=== PATIENT | male | born 1960 | race Caucasian/White ===

== ENCOUNTER 2019-07-28 07:48 | Emergency (ER) | payer BC, SELFPAY ==
[2019-07-28 07:50] VITALS: BP 150/77; PULSE 74; RESP 18; TEMP 36.6; O2SAT 98; BMI 32.1
--- NOTE | 2019-07-28 08:02 | CT_ITS ---
STUDY: CT ABDOMEN AND PELVIS WITHOUT CONTRAST REASON FOR EXAM: Male, 58 years old. RT FLANK/BACK PAIN, CONSTIPATION RADIATION DOSAGE (If Supplied By Facility): CTDIvol = ( 27.03 ) mGy, DLP = ( 1384.39 ) mGycm TECHNIQUE: Transaxial images were obtained from the dome of the diaphragm to the symphysis pubis without oral contrast, and without intravenous contrast. Sagittal and coronal images were reconstructed. Individualized dose optimization techniques were used for this CT. COMPARISON: None. FINDINGS: The visualized lung bases are unremarkable. Minimal pericardial thickening along the right side of the heart Normal liver. Normal gallbladder and extrahepatic biliary system. Normal spleen. Normal pancreas. There is a small, circumscribed, smooth, low attenuation right adrenal mass, consistent with an adrenal adenoma. This measures 2.6 cm x 2 cm. There are 2 hypodense nodules in the left adrenal gland. One nodule measures 2.2 cm. The second nodule measures 1.9 cm. There is a 4 cm x 3.9 cm rounded hypodense mass in the upper pole of the right kidney. This is not a typical cyst. A repeat study following IV contrast or ultrasound of the right kidney is recommended for further evaluation. Mild degree of right perinephric stranding. Mild degree of right hydronephrosis and right hydroureter due to a 3.8 mm calculus in the distal portion of the right ureter just proximal to the ureterovesical junction. Normal left kidney. There is a small hiatal hernia. Normal small intestine. There are multiple colonic diverticula consistent with diverticulosis. The appendix is visualized and appears normal. There is scattered atherosclerotic calcification of the abdominal aorta, without a demonstrated aneurysm. Normal inferior vena cava. Normal retroperitoneum. Normal urinary bladder. There is a small umbilical hernia containing fat. Mild degree of disc space narrowing and degeneration at the L5-S1 level. CT/Abdomen/Pelvis without Cont IMPRESSION: 3.8 mm calculus in the distal portion of the right ureter just proximal to the ureterovesical junction causing a mild degree right hydronephrosis and right hydroureter with perinephric stranding. 4 cm x 3.9 cm round hypodense mass in the upper pole of the right kidney. This is not a typical cyst. Correlation with a repeat CT scan following IV contrast or ultrasound of the right kidney is recommended for further evaluation. Bilateral low-density adrenal nodules most likely representing bilateral adrenal adenomas. Electronically Signed: Dandy Strong, at 8:53 EDT , Service support ,
--- NOTE | 2019-07-28 08:16 | ED.DCSUM_ITS ---
History of Present Illness Chief Complaint: Back Informant: Patient Onset: Today Context: Gradual Onset Timing: Intermittent Quality: Sharp, Aching Location: - - right lower back Worsened by: improves with: Nothing Relieved by: Nothing Associated Symptoms: Constipation Narrative: Patient is a 58-year-old male with history of hyperlipidemia seen with right lower back pain. Patient states he woke up this morning felt like he did have a bowel movement. He said on the toilet while he was on the toilet he had sudden severe episode of right lower back/flank pain. He states he become very sweaty. He had a very small bowel movement with no black or blood in it. He got off the toilet laid on his abdomen his pain completely resolved. 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 He states he became very pale, sweaty and had severe pain in his right flank area. Dates he still feel that he needs to have a bowel movement but does not have any history of constipation. Denies any history of kidney stones. Denies any radiation of pain. He denies any recent falls or trauma. He denies any associated abdominal pain. He does have nausea when the pain is severe but currently does not have any symptoms. His kothari at work is with him and states he looks paler than normal. Prior similar symptoms: No Past Medical History - Allergies and Home Meds Allergies/Adverse Reactions: Allergies No Known Allergies Allergy (Verified 07/28/19 07:51) Primary Care Physician: Thaddeus Alcantar MD [STAFF PHYSICIAN] - Past Medical History: - - Hyperlipidemia Surgical History: no surgical history Smoking Status: Never smoker Review of Systems General: Denies: Chills, Fever, Sweats Eyes: Denies: Visual changes - bilaterally, Diplopia ENT: Denies: Rhinorrhea, Sore throat Cardiovascular: Denies: Chest pain, Palpitations Respiratory: Denies: Dyspnea, Cough, Dyspnea on exertion Gastrointestinal: Reports: Nausea, Constipation. Denies: Abdominal pain, Vomiting, Diarrhea, Melena, Hematochezia Genitourinary: Reports: - - No testicular pain, no incontinence. Denies: Dysuria, Hematuria, Frequency Musculoskeletal: Reports: Back pain - Right flank. Denies: Swelling, Extremity Pain Skin: Denies: Rash, Wounds Neurological: Denies: Headache, Weakness, Numbness Physical Exam Vital Signs/Narrative: Vital Signs Temp Pulse Resp BP Pulse Ox 07/28/19 07:50 98 F 74 18 150/77 H 98 Inital Vital Signs reviewed: Yes General: Well nourished, Well developed Head: Normocephalic, Atraumatic Eyes: Perrl, EOMI ENT: Moist mucous membranes, No rhinorrhea Neck: Supple, Nontender, No JVD Cardiovascular: Regular rate, Regular rhythm, No murmurs Respiratory: No distress, CTA bilaterally, Chest nontender Abdomen: Soft, Nontender, Nondistended, Normal bowel sounds, No masses Back: Normal Inspection, Nontender. Negative for: CVA tenderness - Right CVA is the area of his pain Extremeties: Nontender, No edema Skin: Normal color, No rash Neuro: Alert, Oriented, Normal Strength, Normal Sensation, Normal DTR, Normal Gait Psychological: Normal affect Diagnostic/Tx/Re-eval Clinical Impression(s) from Imaging Studies Abdomen/Pelvis CT 07/28/19 08:02 IMPRESSION: 3.8 mm calculus in the distal portion of the right ureter just proximal to the ureterovesical junction causing a mild degree right hydronephrosis and right hydroureter with perinephric stranding. 4 cm x 3.9 cm round hypodense mass in the upper pole of the right kidney. This is not a typical cyst. Correlation with a repeat CT scan following IV contrast or ultrasound of the right kidney is recommended for further evaluation. Bilateral low-density adrenal nodules most likely representing bilateral adrenal adenomas. Electronically Signed: Dandy Tae, at 8:53 EDT , Service support , Laboratory Data 07/28/19 07/28/19 07/28/19 08:10 08:10 08:10 WBC 11.0 RBC 4.84 Hgb 14.9 Hct 45.0 MCV 93.0 MCH 30.8 MCHC 33.1 RDW Std Deviation 44.0 H RDW Coeff of Zuleyma 12.9 Plt Count 318 MPV 10.1 Immature Gran % (Auto) 0.800 Neut % (Auto) 72.6 H Lymph % (Auto) 18.5 L [place] % (Auto) 4.9 Eos % (Auto) 2.7 Baso % (Auto) 0.5 Absolute Neuts (auto) 8.0 H Absolute Lymphs (auto) 2.04 Nucleated RBC % 0 Sodium 142 Potassium 3.5 Chloride 110 H Carbon Dioxide 25.0 Anion Gap 7 BUN 15 Creatinine 0.93 Estim Creat Clear Calc 108.89 Est GFR (MDRD) Af Amer 108 Est GFR (MDRD) Non-Af 89 BUN/Creatinine Ratio 16.2 Glucose 145 H Lactic Acid 2.4 H* Calcium 9.1 Total Bilirubin 0.50 AST 27 ALT 45 Alkaline Phosphatase 96 Troponin I 0.025 Total Protein 7.1 Albumin 3.6 Globulin 3.5 Albumin/Globulin Ratio 1.0 Lipase 195 Urine Color Urine Clarity Urine pH Ur Specific [place] Urine Protein Urine Glucose (UA) Urine Ketones Urine Occult Blood Urine Nitrite Urine Bilirubin Urine Urobilinogen Ur Leukocyte Esterase Urine RBC Urine WBC Ur Squamous Epith Cells Urine Bacteria Urine Mucus 07/28/19 09:20 WBC RBC Hgb Hct MCV MCH MCHC RDW Std Deviation RDW Coeff of Zuleyma Plt Count MPV Immature Gran % (Auto) Neut % (Auto) Lymph % (Auto) [place] % (Auto) Eos % (Auto) Baso % (Auto) Absolute Neuts (auto) Absolute Lymphs (auto) Nucleated RBC % Sodium Potassium Chloride Carbon Dioxide Anion Gap BUN Creatinine Estim Creat Clear Calc Est GFR (MDRD) Af Amer Est GFR (MDRD) Non-Af BUN/Creatinine Ratio Glucose Lactic Acid Calcium Total Bilirubin AST ALT Alkaline Phosphatase Troponin I Total Protein Albumin Globulin Albumin/Globulin Ratio Lipase Urine Color Yellow Urine Clarity Clear Urine pH 5.0 Ur Specific [place] 1.025 Urine Protein 30 H Urine Glucose (UA) Normal Urine Ketones Negative Urine Occult Blood 250 H Urine Nitrite Negative Urine Bilirubin Negative Urine Urobilinogen Normal Ur Leukocyte Esterase Negative Urine RBC 25-50 SEEN Urine WBC 0 SEEN Ur Squamous Epith Cells 0-5 SEEN Urine Bacteria 0 SEEN Urine Mucus 2+ - Medical Decision Making Evaluated for sudden onset of intermittent right back pain today. It started when he was on the toilet. His symptoms are currently quite mild and seem to be colicky in nature. Physical exam is benign. Presentation is concerning for kidney stone. He does not have a history of kidney stones.BC is normal. Lactate is only mildly elevated 2.4. He is given a liter of IV fluids in the emergency room. Normal kidney function normal of enzymes. Urinalysis does show blood but no signs of infection. CT shows a 3.8 mm calculus at the distal portion of the right ureter just proximal to the UVJ. There is mild associated hydronephrosis and hydroureter. This is all consistent with his presentation. Patient does have an incidental finding of a 4 x 4 centimeter hypodense mass in the upper pole of the right kidney as well as bilateral adrenal adenomas. He is informed of these incidental findings and need for outpatient follow-up. He is instructed to follow-up with his primary care doctor or urology. He is given urology on-call, Dr. Alcantar however he is counseled that if he would prefer to follow-up with a local urologist as he lives [place] in [place], that is fine to. Patient is given IV Toradol in the emergency room. He does not have any significant pain while in the ER however he is given a prescription for [place] if the pain becomes severe again as he continues to pass the stone. Anticipate that he should pass the stone without difficulty. He is [place] on Flomax and is encouraged to continue to take that. ED Disposition - Plan for ED Patient: Disposition: Home or Assisted Living Diagnosis: Renal colic on right side, Right ureteral stone Instructions: ED Renal Stone w Colic Prescriptions: Ibuprofen [Motrin] 600 mg PO Q6H PRN PRN #20 tab PRN Reason: Pain Score 1-10/10 Transmission Status: Received by Carla Kraft Hydrocodone Bitart/Apap 5-325 [[place] 5MG-325MG] 1 tab PO Q6H PRN PRN 3 Days #10 tab PRN Reason: Pain Transmission Status: Received by Carla Kraft Ondansetron [Zofran Odt] 4 mg PO Q8H PRN PRN #10 tab PRN Reason: Nausea Transmission Status: Received by Carla Kraft Referrals: Thaddeus Alcantar MD [STAFF PHYSICIAN] - Additional Instructions: It looks like you have a kidney stone on the right side which is causing your pain today. It should pass on its own. Please follow-up with your primary care doctor. 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 Your CT did show an incidental finding of mass on your upper right kidney. This just needs to be followed up further. This can be done either by your primary care doctor or a urologist.
[2019-07-28] MEDS: 0.9% Normal Saline 1,000 ML 1000 ML IV (08:18)
[2019-07-28] MEDS: Ketorolac 15 MG/ML Vial IV (08:18)
[2019-07-28 08:21] LABS: Absolute Lymphocyte Count 2.04 X10^3/uL (0.83-4.51); Basophil# 0.05 X10^3/uL; Basophil% 0.5 % (0-1); Eosinophils% 2.7 % (0-5); Hemoglobin 14.9 g/dL (13.0-16.5); Lymphocyte # 2.04 X10^3/ul (4.0); Lymphocyte % 18.5 % (19-41); Mean Corp Hgb Conc 33.1 g/dL (32-36); Mean Corpuscular Hgb 30.8 pg (27.0-32.0); Mean Platelet Vol. 10.1 fl (6.2-12.0); Monocyte# 0.54 X10^3/uL; Monocyte% 4.9 % (0-10); NRBC Flagged by Analyzer 0 % (0-5); Neutrophil % 72.6 % (47-70); Platelet Count 318 K/mm3 (150-450); RBC Distribution Width CV 12.9 % (11.6-14.6); Red Blood Count 4.84 M/mm3 (4.6-6.2)
[2019-07-28 08:43] LABS: Lactic Acid 2.4 mmol/L (0.4-1.9)
[2019-07-28 08:44] LABS: AST(SGOT) 27 U/L (15-37); Alanine Aminotransfer ALT/SGPT 45 U/L (16-61); Albumin, Serum 3.6 g/dL (3.2-5.0); Alkaline Phosphatase 96 U/L (45-117); Anion Gap 7 (5-15); BUN 15 mg/dL (7-18); BUN/Creat Ratio 16.2 RATIO (10-20); Calcium,Total 9.1 mg/dL (8.5-10.1); Chloride 110 mmol/L (98-107); Creatinine, Serum 0.93 mg/dL (0.70-1.30); EST Glomerular Filtration Rate 89 mL/min (>60); Est Glom Filt Rate - Afr Amer 108 mL/min (>60); Estimated Creatinine Clearance 108.89 ml/min; Globulin 3.5 g/dL (2.2-4.2); Glucose 145 mg/dL (74-106); Lipase 195 U/L (73-393); Potassium 3.5 mmol/L (3.5-5.1); Protein, Total 7.1 g/dL (6.4-8.2); Sodium Level 142 mmol/L (136-145)
[2019-07-28 09:28] LABS: Bacteria 0 SEEN /hpf (None Seen); White Blood Cells 0 SEEN /hpf (0-5)
[2019-07-28 09:33] LABS: Color, Urine Yellow (Yellow); Glucose, Dipstick Normal (Normal); Ketone-Dipstick Negative (Negative); Leukocyte Esterase-Dipstick Negative /ul (Negative); Nitrite-Dipstick Negative (Negative); Occult Blood-Urine 250 /ul (Negative); Protein-Dipstick 30 mg/dl (Negative); Specific Gravity, Urine 1.025 (1.002-1.030); Urine Bilirubin Dipstick Negative (Negative); Urine Clarity Clear (Clear); Urine Urobilinogen Normal (Normal)
[2019-07-28 09:39] LABS: Mucous, Urine 2+ /hpf (<or=2+); Red Blood Cells-Urine 25-50 SEEN /hpf (0-5); Squamous Epithelial Cells - UA 0-5 SEEN /hpf (0-5)
[2019-07-28 10:34] VITALS: BP 139/84; PULSE 77; RESP 16; O2SAT 98
[2019-07-28 12:18] LABS: Reflex Lactate? Y
== END 2019-07-28 10:36 | disposition home or self-care (01) ==
PROVIDERS: Emergency Provider Emergency Medicine
DX: N13.2 Hydronephrosis with renal and ureteral calculous obstruction (principal)
CPT/HCPCS: 74176; 80053; 81001; 83605; 83690; 84484; 85025; 96361; 96374; 99284; A4216